=== PATIENT | female | born 1990 | race Caucasian/White ===

== ENCOUNTER 2020-10-16 11:26 | Day surgery (SDC) | payer BC ==
[2020-10-16 12:05] VITALS: BMI 26.9
[2020-10-16] MEDS ORDERED: hydrALAZINE 20 MG/ML VIAL SLOW IVP PRN (13:26)
--- NOTE | 2020-10-16 13:30 | PDOC.LDHP ---
Labor and Delivery H&P Chief complaint: decreased movement (at 30 weeks) HPI: Patient of Usha Yoo Location: L&D Triage Chief Complaint: Decreased FM this AM at 30 weeks HPI: 30 yo at 30 weeks6 days with decresaed FM, now resolved. She stated she felt the baby move at home it was just less. No fever, no VB, no LOF, no fevers. She denies any recent traumna. No issues so far. REVIEW OF SYSTEMS: General: no fevers, no malaise RESP: no SOB, no cough GI: no constipation or diarrhea : no dysuria OB: now with good FM, no CTX Current gestational age (weeks): 30 (6D) Grav: 2 Para: 0 OB History Details: HX SAB x 1 in past with no D&C Current complications: none Abnormal US findings: No Past Medical History: None Current medications: pre- vitamins Previous surgical history: none Allergies/Adverse Reactions: Allergies Allergy/AdvReac Type Severity Reaction Status Date / Time fire ant Allergy Severe Verified 10/16/20 11:59 spider venom Allergy Severe Verified 10/16/20 11:59 Social history: none - Physical Exam Vital signs reviewed and normal: yes (117/72 70 86.6) General: NAD, resting Abdomen: gravid Extremeties: no edema FHT: category 1 (NST reviewed: appropriate and reactive for EGA) [place] contractions every: rare - Assessment Decreased FM at 30 weeks 6 days. Now with normal FM. NST reactive for dates. - Plan Plan: observation in L&D (OBS done for 40 minutes. I discussed her NST as reactive so BPP not requireed. ACOG data on movements given. No evidence PTL or acute compromise. OK for DC)
== END 2020-10-16 13:31 | disposition home or self-care (01) ==
LOC: L&D/OP 11:26
PROVIDERS: ATTEND Advanced Practice Midwife
DX: O36.8130 Decreased fetal movements, third trimester, not applicable or unspecified (principal); Z3A.30 30 weeks gestation of pregnancy; Z88.8 Allergy status to other drugs, medicaments and biological substances; Z91.038 Other insect allergy status
CPT/HCPCS: 99282

== ENCOUNTER 2020-11-11 04:38 | Day surgery (SDC) | payer BC ==
[2020-11-11] MEDS ORDERED: hydrALAZINE 20 MG/ML VIAL SLOW IVP PRN (07:08)
--- NOTE | 2020-11-11 14:09 | PRG ---
DATE OF SERVICE: 11/11/2020 PRIMARY OB: Jocelyn Yoo CNM CHIEF COMPLAINT: Decreased movement. HISTORY OF PRESENT ILLNESS: The patient is a 30-year-old G2, P0 female with an intrauterine at 34 weeks and 4 days, presenting with a 1-hour history of decreased movement. The patient reports that she tried shifting sides, drinking, moving, eating to get her baby to move and was unable to and came in for evaluation. The patient denies fever, cough, headache, chest pain, shortness of breath, nausea, vomiting, diarrhea, or constipation. She denies hip problems, knee problems, or muscle weakness. Denies any new rashes. She denies vaginal bleeding, leakage of fluid, or urinary urgency or frequency. The patient reports some infraumbilical pain and pressure with activity and movement that she attributes to just stretching due to the . The patient reports once the monitors were placed, baby began moving again. PAST MEDICAL HISTORY: Significant for one first trimester loss. PAST SURGICAL HISTORY: Negative. ALLERGIES: NO KNOWN DRUG ALLERGIES. MEDICATIONS: vitamins. SOCIAL HISTORY: Denies drug, alcohol, or tobacco use. OB LABS: Unavailable at the time of dictation. REVIEW OF SYSTEMS: Per HPI. PHYSICAL EXAMINATION: VITAL SIGNS: Blood pressure 127/79, heart rate of 77, respiratory rate of 16, saturating 99% on room air, and temperature 98.6. GENERAL: She appears to be in no acute distress. She is alert, oriented, cooperative, and pleasant to interact with. HEAD: Normocephalic, atraumatic. LUNGS: Clear to auscultation bilaterally. HEART: Has a regular rate and rhythm. ABDOMEN: Gravid, soft, nontender. EXTREMITIES: Nontender, nonedematous. : Deferred. heart tracing shows the fetus with a baseline in the 140s with moderate long-term variability, positive 15 x 15 accelerations, no decelerations. She has occasional contractions on the monitor, some felt as mild [place] to the patient. ASSESSMENT AND PLAN: The patient is a 30-year-old female with an intrauterine at 34 weeks and 4 days, here for decreased movement. Fetus has a reactive NST and category 1 tracing. The patient has been given reassurance and is being discharged home. The patient is to follow up next week with her primary provider, Ms. Jocelyn Yoo, nurse clinical care coordinator. Job ID: [id number]
== END 2020-11-11 07:15 | disposition home or self-care (01) ==
LOC: L&D/OP 04:38
PROVIDERS: ATTEND Internal Medicine Critical Care Medicine
DX: O36.8130 Decreased fetal movements, third trimester, not applicable or unspecified (principal); Z3A.34 34 weeks gestation of pregnancy; Z91.038 Other insect allergy status
CPT/HCPCS: 59025; 99282

== ENCOUNTER 2020-11-21 14:25 | Day surgery (SDC) | payer BC ==
[2020-11-21 15:29] VITALS: BMI 28.1
[2020-11-21 15:35] VITALS: BP 138/70; TEMP 98.7
--- NOTE | 2020-11-21 15:42 | PDOC.LDHP ---
Labor and Delivery H&P Chief complaint: abdominal pain HPI: 30yo presents to L&D for evaluation of worsening RUQ pain. She states she has had this pain on and off for a while and her doctor has monitored her LFTs, however today it is worse to the point that she is vomiting. Her EDC is 12/19/20 and she is 36.0wks today. PMH of anxiety and depression. No PSH. Meds: PNV. PCP: Seema Yoo CNM Current gestational age (weeks): 36 (0d) Due date: 12/19/20 Dating criteria: last menstrual period Grav: 2 Para: 0 Current complications: none Abnormal US findings: No Past Medical History: Anxiety / Depression Cyclical vomiting syndrome Migraines Current medications: pre-vicky vitamins Previous surgical history: none Allergies/Adverse Reactions: Allergies Allergy/AdvReac Type Severity Reaction Status Date / Time fire ant Allergy Severe Verified 11/21/20 15:28 spider venom Allergy Severe Verified 11/21/20 15:28 Social history: none - Physical Exam Vital signs reviewed and normal: yes General: NAD, resting Heart: RRR Lungs: CTAB Abdomen: other (Non-tender to palpation. Negative ybarra sign.) Extremeties: no edema FHT: category 1 [place] contractions every: irregular - OB Labs Blood type: unknown RH: unknown Antibody Screen: unknown HIV: unknown RPR: unknown HEPSAg: unknown 1 hour GCT: unknown GBS: unknown - Assessment RUQ pain - Suspect cholestasis of . Had previous workup done in clinic this week but do not have all results. History and exam not consistent with cholelithiasis. - CMP, CBC, Bile acids, and urine pro/cr ratio ordered. - Will monitor FHT - 1L LR and phenergan for nausea. UPDATE: - CBC, CMP, and urine pro:cr ratio negative. - LFTs WNL. - Bile acids pending, will have Seema Yoo f/u on these. - Recommend close f/u with PCP. - FHR improved with IV fluids. - Nausea improved with po phenergan. Sent rx for phenergan to pharmacy. - D/c home with pcp follow up next week. This plan was discussed with Dr. Post attending. Chandrakant SO PGY2 Addendum - Attending - Attending Attestation Date/Time: 11/21/20 1800 I personally evaluated the patient and discussed the management with Dr. Voss. at 36 weeks, has bile acid results pending with Usha Yoo. BPs, LGTs, labs, urine protein here are normal, no evidence of PIH. Home with precautions, f/u with Usha Yoo next week. I agree with the History, Examination, Assessment and Plan documented above.
[2020-11-21] MEDS ORDERED: hydrALAZINE 20 MG/ML VIAL SLOW IVP PRN (15:54)
[2020-11-21] MEDS ORDERED: Promethazine 25 MG TAB PO PRN (16:00)
[2020-11-21] MEDS ORDERED: Lactated Ringer's 1,000 ML IV SCH (16:00)
[2020-11-21 16:47] LABS: #Eosinphils 0.1 thou/uL (0.0-0.7); #Lymphocytes 2.2 thou/uL (1.20-3.40); #Monocytes 0.7 thou/uL (0.11-0.59); #Neutrophils 9.9 thou/uL (1.40-6.50); %Basophils 0.2 % (0.0-1.0); %Eosinophils 0.6 % (0.0-10.0); %Lymphocytes 17.1 % (21.0-51.0); %Monocytes 5.3 % (0.0-10.0); %Neutrophils 76.8 % (42.0-75.0); Hemoglobin 11.1 g/dL (12.0-16.0); Mean Corpuscular HGB CONC 33.7 g/dL (32.0-36.0); Mean Corpuscular Hemoglobin 30.4 pg (27.0-31.0); Mean Corpuscular Volume 90.2 fL (78.0-98.0); Mean Platelet Volume 9.5 fL (7.4-10.4); Platelet Count 230 thou/uL (130-400); RBC Distribution Width 12.6 % (11.5-14.5); Red Blood Cell (RBC) Count 3.65 mill/uL (4.20-5.40); White Blood Cell (WBC) Count 12.8 thou/uL (4.8-10.8)
[2020-11-21 17:06] LABS: Creatinine, Urine 31.99 mg/dL (47-110); Protein, Urine Random Quant Less than 10 mg/dL (1-14)
[2020-11-21 17:13] LABS: ALT (SGPT) 32 U/L (8-55); AST (SGOT) 26 U/L (5-34); Albumin 3.3 g/dL (3.5-5.0); Alkaline Phosphatase 170 U/L (40-110); Anion Gap 15 mmol/L (10-20); BUN (Urea Nitrogen) 7 mg/dL (7.0-18.7); Bilirubin, Total 0.4 mg/dL (0.2-1.2); Calc. Creatinine Clearance 155 mL/min (70-130); Calcium 8.4 mg/dL (7.8-10.44); Carbon Dioxide 19 mmol/L (22-29); Chloride 105 mmol/L (98-107); Globulin 3.2 g/dL (2.4-3.5); Glucose 82 mg/dL (70-105); Potassium 3.5 mmol/L (3.5-5.1); Protein, Total 6.5 g/dL (6.0-8.3); Sodium 135 mmol/L (136-145)
== END 2020-11-21 18:12 | disposition home or self-care (01) ==
LOC: L&D/OP 14:25
PROVIDERS: ATTEND Obstetrics & Gynecology
DX: O99.891 Other specified diseases and conditions complicating pregnancy (principal); R10.11 Right upper quadrant pain; O99.343 Other mental disorders complicating pregnancy, third trimester; F41.9 Anxiety disorder, unspecified; F32.9 Major depressive disorder, single episode, unspecified; O99.353 Diseases of the nervous system complicating pregnancy, third trimester; G43.A0 Cyclical vomiting, in migraine, not intractable; Z3A.36 36 weeks gestation of pregnancy; Z91.038 Other insect allergy status
CPT/HCPCS: 36415; 80053; 82239; 82570; 84156; 85025; Q0169

== ENCOUNTER 2020-11-24 08:52 | Outpatient (CLI) | payer BC ==
[2020-11-25 06:06] LABS: SARS-CoV-2 MS2 Positive; SARS-CoV-2 N Gene Negative; SARS-CoV-2 S Gene Negative; SARS-CoV-2 by NAA Not Detected (NotDetected); SARS-CoV-2 orf1ab Negative
== END 2020-11-24 08:53 | disposition home or self-care (01) ==
LOC: LABBT 08:52
PROVIDERS: ATTEND Advanced Practice Midwife
DX: Z01.812 Encounter for preprocedural laboratory examination (principal); Z20.822 Contact with and (suspected) exposure to COVID-19
CPT/HCPCS: 87635; U0003

== ENCOUNTER 2020-11-26 19:30 | Inpatient (IN) | payer BC ==
[~2020-11-26 19:30] MED LIST: Bupivacaine 0.25% HCL 30 ML VIAL ONE
[2020-11-26] MEDS ORDERED: Ibuprofen 800 MG TAB PO PRN (21:00)
[2020-11-26] MEDS ORDERED: NS / Oxytocin 40 units/1000ml 1,000 ML IV PRN (21:00)
[2020-11-26] MEDS ORDERED: hydrALAZINE 20 MG/ML VIAL SLOW IVP PRN (21:00)
[2020-11-26] MEDS ORDERED: Misoprostol 200 MCG TAB PR PRN (21:00)
[2020-11-26] MEDS ORDERED: Lidocaine 1% (PF) 30 ML VIAL SC PRN (21:00)
[2020-11-26] MEDS ORDERED: Methylergonovine 0.2 MG/ML VIAL IM PRN (21:00)
[2020-11-26] MEDS ORDERED: Butorphanol Tartrate 1 MG/ML VIAL SLOW IVP PRN (21:00)
[2020-11-26] MEDS ORDERED: Promethazine HCl 25 MG/ML VIAL IM PRN (21:00)
[2020-11-26] MEDS ORDERED: Ondansetron PF 4 MG/2 ML Vial IVP PRN (21:00)
[2020-11-26] MEDS ORDERED: Diphenoxylate HCl/Atropine Tablet PO PRN ×2 (21:00)
[2020-11-26] MEDS ORDERED: HYDROcodone/Acetaminophen 5/325 mg Tablet PO PRN ×2 (21:00)
[2020-11-26 21:25] VITALS: BMI 28.7
[2020-11-26] MEDS: Lactated Ringer's 1,000 ML IV SCH (21:30)
[2020-11-26] MEDS: Misoprostol 100 MCG TAB VAG SCH (22:00)
[2020-11-26 22:01] LABS: Hemoglobin 9.9 g/dL (12.0-16.0); Mean Corpuscular Hemoglobin 30.3 pg (27.0-31.0); Mean Corpuscular Volume 88.9 fL (78.0-98.0); Mean Platelet Volume 9.2 fL (7.4-10.4); Platelet Count 224 thou/uL (130-400); RBC Distribution Width 12.5 % (11.5-14.5); Red Blood Cell (RBC) Count 3.26 mill/uL (4.20-5.40); White Blood Cell (WBC) Count 12.2 thou/uL (4.8-10.8)
[2020-11-26 22:21] LABS: ALT (SGPT) 22 U/L (8-55); AST (SGOT) 20 U/L (5-34); Alkaline Phosphatase 168 U/L (40-110); Anion Gap 14 mmol/L (10-20); BUN (Urea Nitrogen) 9 mg/dL (7.0-18.7); Bilirubin, Total 0.2 mg/dL (0.2-1.2); Calc. Creatinine Clearance 142 mL/min (70-130); Calcium 8.2 mg/dL (7.8-10.44); Carbon Dioxide 21 mmol/L (22-29); Chloride 107 mmol/L (98-107); Globulin 2.5 g/dL (2.4-3.5); Glucose 137 mg/dL (70-105); Potassium 3.5 mmol/L (3.5-5.1); Protein, Total 5.5 g/dL (6.0-8.3); Sodium 138 mmol/L (136-145)
[2020-11-26 22:33] LABS: Syphilis Antibody Nonreactive (Nonreactive); Syphilis Antibody Index 0.03 S/CO (<1.00 Non-Reactive)
[2020-11-26 22:45] LABS: Hep B Surf Ag Non-Reactive S/CO (NonReactive)
[2020-11-27] MEDS: Misoprostol 100 MCG TAB VAG SCH (00:59)
[2020-11-27] MEDS ORDERED: Penicillin G Potassium 5 MILL.UNITS in Sodium Chloride 0.9% 100 ML IVPB SCH (04:00)
[2020-11-27] MEDS: Lactated Ringer's 1,000 ML IV SCH (04:49)
[2020-11-27] MEDS ORDERED: Fentanyl 4 mcg/Bup 0.1% Cadd 100 ML ONE (11:27)
[2020-11-27] MEDS ORDERED: Naloxone HCl 0.4 mg/ml Vial IVP PRN ×2 (12:19)
[2020-11-27] MEDS ORDERED: Acetaminophen 325 MG TAB PO PRN (12:19)
[2020-11-27] MEDS ORDERED: Lactated Ringer's 500 ML IV PRN (12:19)
[2020-11-27] MEDS ORDERED: diphenhydrAMINE 50 MG/ML VIAL IVP PRN (12:19)
[2020-11-27] MEDS ORDERED: Promethazine HCl 25 MG/ML VIAL IM PRN (12:19)
[2020-11-27] MEDS ORDERED: Ondansetron PF 4 MG/2 ML Vial IVP PRN (12:19)
[2020-11-27] MEDS ORDERED: ePHEDrine 50 MG/ML VIAL SLOW IVP PRN (12:19)
[2020-11-27] MEDS ORDERED: Communication Order-Pharmacy FS SCH (12:30)
[2020-11-27] MEDS ORDERED: Fentanyl 4 mcg/Bupivacaine 0.1% Cassette 100 ML EPIDURAL SCH (12:30)
[2020-11-27] MEDS ORDERED: Penicillin G Potassium 5 MILL.UNITS VIAL ONE (15:01)
[2020-11-27] MEDS ORDERED: hydrALAZINE 20 MG/ML VIAL SLOW IVP PRN (17:18)
[2020-11-27] MEDS ORDERED: Benzocaine-Menthol 82.5 ML CAN TOP PRN (17:18)
[2020-11-27] MEDS ORDERED: Bisacodyl 10 MG SUPP PR PRN (17:18)
[2020-11-27] MEDS ORDERED: HYDROcodone/Acetaminophen 5/325 mg Tablet PO PRN ×2 (17:18)
[2020-11-27] MEDS ORDERED: Methylergonovine 0.2 MG/ML VIAL IM PRN (17:18)
[2020-11-27] MEDS ORDERED: Lanolin Ointment 7 GM TUBE TOP PRN (17:18)
[2020-11-27] MEDS ORDERED: Milk Of Magnesia 30 ML UDCUP PO PRN (17:18)
[2020-11-27] MEDS ORDERED: diphenhydrAMINE 25 MG CAP PO PRN (17:18)
--- NOTE | 2020-11-27 17:24 | PDOC.LDHP ---
Labor and Delivery H&P Chief complaint: scheduled induction HPI: Patient arrives for IOL for cholestasis. Current gestational age (weeks): 36 Due date: 12/19/20 Dating criteria: last menstrual period Grav: 2 Para: 1 Current complications: none Current medications: pre- vitamins Allergies/Adverse Reactions: Allergies Allergy/AdvReac Type Severity Reaction Status Date / Time fire ant Allergy Severe Verified 11/26/20 21:27 spider venom Allergy Severe Verified 11/26/20 21:27 - Physical Exam Vital signs reviewed and normal: yes General: breathing through contractions Heart: other Lungs: nonlabored breathing Abdomen: gravid (1) FHT: category 1 - Vaginal Exam cm dilated: 1 Effacement: 25% Station: -3 - OB Labs Blood type: A RH: positive Antibody Screen: negative HIV: negative RPR: negative HEPSAg: negative 1 hour GCT: negative GBS: unknown Urine drug screen: negative Rubella: immune - Assessment L&D Assessment: medically indicated induction (for cholestasis) cholestasis of - Plan Plan: admit to L&D, cervical ripening, GBS antibiotic prophylaxis, informed consent obtained, anesthesia consult for pain management
--- NOTE | 2020-11-27 17:28 | PDOC.OPDEL ---
OB Operative/Delivery Note Delivery Dr/Surgeon: Light Pre-Delivery Diagnosis: active labor, medically indicated induction, other (cholestasis) Procedure/Post Delivery Dx: spontaneous vaginal delivery Weeks gestation: 36 Anesthesia: epidural - Findings A Sex: male (8) - 1 min: 8 - 5 min: 9 - Additional Findings/Plan Placenta delivered: spontaneous Repaired Obstetrical Laceration: right labial Estimated blood loss: 125 Post delivery plan: routine recovery
[2020-11-27] MEDS ORDERED: NS / Oxytocin 40 units/1000ml 1,000 ML IV SCH (17:30)
[2020-11-27] MEDS ORDERED: NS w/ Oxytocin 30 units 500 ML IV PRN (18:09)
[2020-11-27] MEDS ORDERED: NS w/ Oxytocin 30 units 500 ML IV SCH (18:15)
[2020-11-27] MEDS: Docusate Calcium (SURFAK) 240 MG CAP PO SCH (21:33)
[2020-11-27] MEDS: Ibuprofen 800 MG TAB PO SCH (21:34)
[2020-11-28] MEDS: Ibuprofen 800 MG TAB PO SCH ×3 (05:00→21:15)
[2020-11-28] MEDS: Misoprostol 100 MCG TAB VAG SCH ×5 (06:23→10:58)
[2020-11-28] MEDS: Pen G 2.5 MILL.UNITS/50 ML BAG IVPB SCH ×5 (06:26→10:59)
[2020-11-28] MEDS: Lactated Ringer's 1,000 ML IV SCH ×4 (06:28→20:43)
[2020-11-28] MEDS: Docusate Calcium (SURFAK) 240 MG CAP PO SCH ×2 (08:30→21:15)
[2020-11-28] MEDS: Prenatal Vitamin 1 TAB PO SCH (08:30)
[2020-11-28] MEDS: Ferrous Sulfate 325 MG TAB PO SCH ×2 (08:30→17:35)
[2020-11-28] MEDS ORDERED: Adacel (T-DAP) 0.5 ML SYRINGE IM ONE (09:00)
--- NOTE | 2020-11-28 16:24 | PDOC.PP ---
Post Progress Note Post Day #: 1 Subjective: Doing well. Sore at lac site but otherwise without complaints. PO intake tolerated: yes Ambulation: yes Vital Signs (12 hours) Temp Pulse Resp BP Pulse Ox 11/28/20 12:00 98.5 F 95 16 138/68 99 11/28/20 08:00 98.2 F 62 16 132/81 98 11/28/20 05:00 97.9 F 62 18 122/72 Weight Weight 189 lb - Physical Examination General: NAD Respiratory: non-labored breathing Abdominal: lochia (normal), no distention, appropriately TTP Fundus firm & at: umbilicus Neurological: no gross focal deficits Psychiatric: A&Ox3, normal affect Result Diagrams: 11/26/20 21:44 11/26/20 21:44 Additional Labs: Post Labs Hep Bs Antigen Non-Reactive S/CO (NonReactive) 11/26/20 21:44 Blood Type A POSITIVE 11/26/20 22:08 (1) Cholestasis Code(s): K83.1 - OBSTRUCTION OF BILE DUCT Status: Acute (2) (spontaneous vaginal delivery) Code(s): O80 - ENCOUNTER FOR FULL-TERM UNCOMPLICATED DELIVERY Status: Acute - Assessment/Plan Doing well PPD1. Anticipate d/c tomorrow.
[2020-11-29] MEDS: Lactated Ringer's 1,000 ML IV SCH (03:30)
[2020-11-29] MEDS: Ibuprofen 800 MG TAB PO SCH (05:37)
[2020-11-29 08:26] VITALS: BP 143/76; TEMP 98.2
[2020-11-29] MEDS: Docusate Calcium (SURFAK) 240 MG CAP PO SCH (09:38)
[2020-11-29] MEDS: Ferrous Sulfate 325 MG TAB PO SCH (09:38)
[2020-11-29] MEDS: Prenatal Vitamin 1 TAB PO SCH (09:38)
== END 2020-11-29 11:45 | disposition home or self-care (01) | DRG 805 ==
LOC: L&D 20:54 → 3SW 11-27 20:10
PROVIDERS: ADMIT Obstetrics & Gynecology; ATTEND Obstetrics & Gynecology
PROC: 10E0XZZ Delivery of Products of Conception, External Approach (ICD-10-PCS; principal; 2020-11-27)
PROC: 0UQMXZZ Repair Vulva, External Approach (ICD-10-PCS; 2020-11-27)
PROC: 3E0P7VZ Introduction of Hormone into Female Reproductive, Via Natural or Artificial Opening (ICD-10-PCS; 2020-11-27)
PROC: 3E033VJ Introduction of Other Hormone into Peripheral Vein, Percutaneous Approach (ICD-10-PCS; 2020-11-27)
DX: O26.62 Liver and biliary tract disorders in childbirth (principal); K83.1 Obstruction of bile duct; Z37.0 Single live birth; Z20.822 Contact with and (suspected) exposure to COVID-19; O70.0 First degree perineal laceration during delivery; Z3A.36 36 weeks gestation of pregnancy
CPT/HCPCS: 36415; 51702; 80053; 85027; 86780; 86850; 86900; 86901; 87340; 87635; J2540; J3490; S0020; U0003

== ENCOUNTER 2022-07-21 08:15 | Outpatient (CLI) | payer BC | END 2022-07-21 08:16 | disposition home or self-care (01) | LOC: BICULT 08:15 | PROVIDERS: ATTEND Family Medicine | DX: R74.01 Elevation of levels of liver transaminase levels (principal) | CPT/HCPCS: 76705 ==